=== PATIENT | female | born 1975 | race Caucasian/White ===

== ENCOUNTER → 2017-11-26 16:48 | Outpatient (CLI) | payer OTHER ==
[~2017-11-26 16:48] MED LIST: CONEX TABLET1 EACH PO; GARAMYCIN OPHT3.5 GM OP; HYZAAR 100-121 UDTAB; HYZAAR 100-121 UDTAB PO; KETO10TA2 PO; LOSARTAN-HCTZ1 EAC2; ORPH100T PO; OSEL75CA PO; TUSICOF LIQUID120 ML PO; VISINE-A EYE DR15 ML OP; ZITHROMAX TRI-500 MG PO; ZYRTEC10 MG PO
== END | disposition home or self-care (01) ==
LOC: PPHC 16:48
DX: J06.9 Acute upper respiratory infection, unspecified (principal); J32.8 Other chronic sinusitis

== ENCOUNTER 2018-03-25 15:03 | Outpatient (CLI) | payer OTHER | END 2018-03-25 15:04 | disposition home or self-care (01) | LOC: LAB 15:03 | DX: R50.9 Fever, unspecified (principal) ==

== ENCOUNTER → 2018-03-25 | Outpatient (CLI) | payer OTHER | END | disposition home or self-care (01) | LOC: PPHC 14:14 | DX: B34.9 Viral infection, unspecified (principal) ==

== ENCOUNTER 2018-04-29 07:18 | Emergency (ER) | payer OTHER ==
[~2018-04-29] VITALS: Ht 149.9 cm; Wt 72.6 kg
[2018-04-29] MEDS ORDERED: MEDROLPACK PO (13:32)
[2018-04-29] MEDS ORDERED: KETO10TA2 PO (13:32)
[2018-04-29] MEDS ORDERED: ORPHENADRINE C100 MG PO (13:32)
[2018-04-29] MEDS ORDERED: CYCLOBENZAPRINE10 MG PO (13:32)
== END 2018-04-29 14:18 | disposition home or self-care (01) ==
LOC: ER 07:18
DX: M51.36 Other intervertebral disc degeneration, lumbar region (principal); M54.5 Low back pain

== ENCOUNTER 2018-07-06 08:49 | Outpatient (CLI) | payer OTHER ==
[~2018-07-06 08:49] MED LIST changes: +CYCLOBENZAPRINE10 MG PO; +MEDROLPACK PO; +ORPHENADRINE C100 MG PO
== END 2018-07-06 08:56 | disposition home or self-care (01) ==
LOC: LAB 08:49
DX: Z11.3 Encounter for screening for infections with a predominantly sexual mode of transmission (principal)

== ENCOUNTER 2019-06-01 00:30 | Emergency (ER) | payer OTHER ==
[~2019-06-01] VITALS: Ht 149.9 cm; Wt 74.8 kg
[2019-06-01] MEDS ORDERED: PEPCID40 MG PO (07:28)
[2019-06-01] MEDS ORDERED: ZOFRAN8 MG PO (07:28)
== END 2019-06-01 07:45 | disposition home or self-care (01) ==
LOC: ER 00:30
DX: K29.70 Gastritis, unspecified, without bleeding (principal)

== ENCOUNTER 2021-01-03 12:10 | Emergency (ER) | payer OTHER ==
[~2021-01-03] VITALS: Ht 149.9 cm; Wt 77.6 kg
[~2021-01-03 12:10] MED LIST changes: +PEPCID40 MG PO; +ZOFRAN8 MG PO
[2021-01-03] MEDS ORDERED: NORFLEX100MG PO (13:33)
[2021-01-03] MEDS ORDERED: KETO10TA2 PO (13:33)
[2021-01-03] MEDS ORDERED: HYZAAR 100-12.1 EACH PO (13:38)
== END 2021-01-03 13:48 | disposition home or self-care (01) ==
LOC: ER 12:10
DX: M54.2 Cervicalgia (principal); M25.511 Pain in right shoulder

== ENCOUNTER 2021-03-26 10:01 | Outpatient (CLI) | payer OTHER ==
[~2021-03-26 10:01] MED LIST changes: +HYZAAR 100-12.1 EACH PO; +NORFLEX100MG PO
== END 2021-03-26 10:12 | disposition home or self-care (01) ==
LOC: SONOGRAMA 10:01 → MAMO-SONO 10:15
DX: M25.511 Pain in right shoulder (principal)

== ENCOUNTER 2024-01-09 16:18 | Emergency (ER) | payer OTHER ==
[~2024-01-09] VITALS: Ht 149.9 cm; Wt 68.0 kg
[2024-01-09] MEDS ORDERED: PEPCID AC20 MG PO (16:22)
[2024-01-09] MEDS ORDERED: PROTONIX40 M1 PO (16:22)
[2024-01-09] MEDS ORDERED: HYOSCYAMINE SULFATE 0.125 MG TAB.SUBL SL STA (16:50)
[2024-01-09 17:11] LABS: HEMATOCRIT 35.9 % (36.0-45.00); MEAN CELL VOLUME 79.9 fL (80.00-100.00); MEAN CORPUSCULAR HEMOGLOBIN 26.8 pg (27.00-32.0); MEAN CORPUSCULAR HGB CONC 33.5 g/dl (32.0-36.0); PLATELET COUNT 252 K/uL (150-450); RED CELL DISTRIBUTION WIDTH 14.2 % (11.5-14.5)
== END 2024-01-09 18:17 | disposition home or self-care (01) ==
LOC: ER 16:18
DX: K59.01 Slow transit constipation (principal)

== ENCOUNTER 2024-08-11 12:32 | Emergency (ER) | payer OTHER ==
[~2024-08-11] VITALS: Ht 147.3 cm; Wt 69.9 kg
[~2024-08-11 12:32] MED LIST changes: +PEPCID AC20 MG PO; +PROTONIX40 M1 PO
[2024-08-11] MEDS ORDERED: ORPHENADRINE CITRATE 30 MG/ML AMPUL IM STA (14:16)
[2024-08-11] MEDS ORDERED: KETOROLAC TROMETHAMINE 60 MG VIAL IM STA (14:17)
[2024-08-11] MEDS ORDERED: KETOROLAC TROMETHAMINE 60 MG VIAL IM ONE (14:49)
[2024-08-11] MEDS ORDERED: ORPHENADRINE CITRATE 30 MG/ML AMPUL ONE (14:49)
== END 2024-08-11 17:05 | disposition home or self-care (01) ==
LOC: ER 12:33
DX: M62.838 Other muscle spasm (principal)